=== PATIENT | female | born 1960 | race Caucasian/White ===

== ENCOUNTER → 2017-08-27 | Outpatient (CLI) | payer OTHER ==
--- NOTE | 2017-09-04 08:53 | MG ---
HISTORY: SCREENING Comparison: 08/23/2016 FINDINGS: Bilateral CC and MLO projections including implant displaced views of the right and left breast were obtained. Heterogeneous fibroglandular tissue is seen to be present. Small round mass seen on the r ight implant displaced CC view posterior to the nipple.. No skin thickening or nipple retraction is appreciated. No pathological lymphadenopathy can be identified. Bilateral subpectoral breast implan ts in place. IMPRESSION: Possible new, small right breast mass posterior to the right nipple seen best on CC view . ACR CATEGORY: 0 - ASSESSMENT INCOMPLETE; ADDITIONAL IMAGING IS NEEDED Return for spot compression and ultrasound of the retroareolar right breast. Diagnostic CAD was utilized and reviewed. * 0 (ZERO) - ASSESSMENT INCOMPLETE; ADDITIONAL IMAGING IS NEEDED. * 1/1 (ONE) - NEGATIVE. * 2/II (TWO) - BENIGN FINDINGS. * 3/III (THREE) - PROBABLY BENIGN FINDING; SHORT INTERVAL FOLLOW-UP SUGGESTED. * 4/IV (FOUR) - SUSPICIOUS ABNORMALITY; BIOPSY SHOULD BE CONSIDERED. * 5/V - HIGHLY SUSPICIOUS OF MALIGNANCY; BIOPSY SHOULD BE PERFORMED. A NEGATIVE X-RAY REPORT SHOULD NOT DELAY BIOPSY IF A DOMINANT OR CLINICALLY SUSPICIOUS MASS IS PRESENT; 4 TO 8 PERCENT OF CANCERS ARE NOT IDENTIFIED BY X-RAY. A NEGA TIVE REPORT MAY REINFORCE THE CLINICAL IMPRESSION. ADENOSIS AND DENSE BREASTS MAY OBSCURE AN UNDERLY ING NEOPLASM. Reported By:
== END | disposition home or self-care (01) | DRG 951 ==
LOC: RAD 08:55
PROVIDERS: ATTEND Specialist
DX: Z12.31 Encounter for screening mammogram for malignant neoplasm of breast (principal); R92.8 Other abnormal and inconclusive findings on diagnostic imaging of breast
CPT/HCPCS: 77067

== ENCOUNTER → 2017-09-11 | Outpatient (CLI) | payer OTHER ==
--- NOTE | 2017-09-11 14:59 | MG ---
Examination: Unilateral right diagnostic mammogram and right breast ultrasound. Clinical history: Abnormal screening mammogram. Technique: Additional digital images of the right breast were obtained. Targeted right breast ultraso und was also obtained evaluating the retroareolar region of the right breast. Comparison: 08/27/2017, 09/04/2016, 08/03/2016. Findings: The right breast is heterogeneously dense, reducing the sensitivity of mammography. A saline prosthes is is normal in appearance. Benign-appearing calcifications are noted in the right breast. A small rounded density seen in the retroareolar region of the right breast on the CC view only of th e recent screening mammogram, is not persistent on additional views and was probably due to summation artifact. Targeted right breast ultrasound evaluating the retroareolar region of the right breast reveals mild ductal ectasia in the retroareolar region of the breast. A small ill-defined 0.6 x 0.4 cm hypoechoic area in the retroareolar region was marked by the technologist, likely representing a small island of fat within dense fibroglandular tissue. A follow-up right diagnostic mammogram and right breast ultr asound is recommended in 6 months to ensure stability of this finding. Impression: 1. Probably benign findings in the right breast, as described above. BI-RADS category 3/III (THREE) - PROBABLY BENIGN FINDING; SHORT INTERVAL FOLLOW-UP SUGGESTED. Recommend a follow-up right diagnostic mammogram and right breast ultrasound in [address] ability of the findings in the right breast. Diagnostic CAD was utilized and reviewed. * 0 (ZERO) - ASSESSMENT INCOMPLETE; ADDITIONAL IMAGING IS NEEDED. * 0C - ASSESSMENT INCOMPLETE, NEEDS ADDITIONAL IMAGING EVALUATION AND/OR PRIOR MAMMOGRAMS FOR COMPARI SON. * 1/1 (ONE) - NEGATIVE. * 2/II (TWO) - BENIGN FINDINGS. * 3/III (THREE) - PROBABLY BENIGN FINDING; SHORT INTERVAL FOLLOW-UP SUGGESTED. * 4/IV (FOUR) - SUSPICIOUS ABNORMALITY; BIOPSY SHOULD BE CONSIDERED. * 5/V - HIGHLY SUSPICIOUS OF MALIGNANCY; BIOPSY SHOULD BE PERFORMED. * 6/IV - KNOWN BIOPSY PROVEN MALIGNANCY-APPROPRIATE ACTION SHOULD BE TAKEN. A NEGATIVE X-RAY REPORT SHOULD NOT DELAY BIOPSY IF A DOMINANT OR CLINICALLY SUSPICIOUS MASS IS PRESENT; 4 TO 8 PERCENT OF CANCERS ARE NOT IDENTIFIED BY X-RAY. A NEGATIVE REPORT MAY REINFORCE THE CLINICAL IMPRESSION. ADENOSIS AND DENSE BREASTS MAY OBSCURE AN UNDERLYING NEOPLASM. Reported By:
== END ==
LOC: RAD 13:01
PROVIDERS: ATTEND Specialist
DX: R92.8 Other abnormal and inconclusive findings on diagnostic imaging of breast (principal)
CPT/HCPCS: 76642; 77065

== ENCOUNTER → 2018-03-19 | Outpatient (CLI) | payer OTHER ==
--- NOTE | 2018-03-19 14:19 | MG ---
HISTORY: Six-month follow-up right breast nodule Right breast digital diagnostic mammography with CAD and right breast ultrasound. Comparison: August 27, 2017 and September 11, 2017 FINDINGS: Mammogram: CC and MLO projections of the right breast were obtained utilizing both full-field and pus h back techniques with bilateral subpectoral saline implants appearing grossly intact. Heterogeneous ly dense fibroglandular tissue is seen to be present without significant interval change. No new or developing suspicious architectural distortion, mass or clustered microcalcifications can be observed to suggest malignancy. There is stable subtle subareolar breast nodularity. No skin thickening or n ipple retraction is appreciated. No pathological lymphadenopathy can be identified. Benign-appearin g calcifications are noted. Ultrasound: Multiple grayscale and color Doppler images of the subareolar right breast were obtained. At 12 o'clock, there is a persistent horizontally oriented 7 mm heterogeneous hypoechoic nodule with out posterior acoustical features or internal vascularity with predominantly smoothly marginated and well circumscribed borders with surrounding dense fibrocystic change and ductal ectasia which could r eflect a focal complex cyst with internal debris or debris within a dilated duct. No suspicious cysti c or solid nodules are seen to warrant biopsy. IMPRESSION: Probably benign right breast nodularity for which an additional six-month follow-up is r ecommended. The patient should undergo bilateral mammographic imaging at that time. ACR CATEGORY 3 - probably benign findings; short interval follow-up suggested. Diagnostic CAD was utilized and reviewed. * 0 (ZERO) - ASSESSMENT INCOMPLETE; ADDITIONAL IMAGING IS NEEDED. * 1/1 (ONE) - NEGATIVE. * 2/II (TWO) - BENIGN FINDINGS. * 3/III (THREE) - PROBABLY BENIGN FINDING; SHORT INTERVAL FOLLOW-UP SUGGESTED. * 4/IV (FOUR) - SUSPICIOUS ABNORMALITY; BIOPSY SHOULD BE CONSIDERED. * 5/V - HIGHLY SUSPICIOUS OF MALIGNANCY; BIOPSY SHOULD BE PERFORMED. A NEGATIVE X-RAY REPORT SHOULD NOT DELAY BIOPSY IF A DOMINANT OR CLINICALLY SUSPICIOUS MASS IS PRESENT; 4 TO 8 PERCENT OF CANCERS ARE NOT IDENTIFIED BY X-RAY. A NEGA TIVE REPORT MAY REINFORCE THE CLINICAL IMPRESSION. ADENOSIS AND DENSE BREASTS MAY OBSCURE AN UNDERLY ING NEOPLASM. Reported By:
== END ==
LOC: RAD 12:34
PROVIDERS: ATTEND Specialist
DX: R92.8 Other abnormal and inconclusive findings on diagnostic imaging of breast (principal)
CPT/HCPCS: 76642; 77065